=== PATIENT | male | born 1980 | race Caucasian/White ===

== ENCOUNTER 2022-11-28 22:06 | Emergency (ER) | payer MEDICARE, OTHER | END 2022-11-28 22:39 | disposition home or self-care (01) | LOC: JD.ED 22:06 | DX: M54.50 Low back pain, unspecified (principal); W01.0XXA Fall on same level from slipping, tripping and stumbling without subsequent striking against object, initial encounter; Y99.0 Civilian activity done for income or pay | CPT/HCPCS: 99283 ==